=== PATIENT | female | born 1995 | race Caucasian/White ===

== ENCOUNTER 2024-01-16 10:48 | Outpatient (CLI) | payer MEDICAID, SELFPAY | END 2024-01-16 10:49 | disposition home or self-care (01) | LOC: NFLDREF 01-17 05:43 | PROVIDERS: Visit Provider Advanced Practice Midwife | DX: Z34.93 Encounter for supervision of normal pregnancy, unspecified, third trimester (principal) | CPT/HCPCS: 86803 ==

== ENCOUNTER 2024-01-27 12:13 | Outpatient (CLI) | payer MEDICAID, SELFPAY ==
--- NOTE | 2024-01-27 12:15 | US_ITS ---
Patient: DEVON CASTREJON Facility:?[facility] RIS Patient ID:?[id number] Site Patient ID:?[id number]. Site :?[id number] Study:?US-OB Pelvis OB F/U-01/27/2024 1:45:47 PM Ordering Physician:Jovita Alvarado Final Report: INDICATION: Third trimester scan, evaluate growth. COMPARISON: 01/08/2024 TECHNIQUE: Real time ordonez scale imaging of the fetus was performed. FINDINGS: Sonographic imaging demonstrates a single living intrauterine gestation. Cervix is closed and measures 3.2 cm. Fetus demonstrates a regular cardiac rate of 163 beats per minute. Fetus has a vertex position. The placenta lies anteriorly without evidence of placenta previa. Amniotic fluid volume appears normal and there is a single deepest vertical pocket: 4.9 cm. The estimated weight is 1575gm which lies at the 53rd %. On the prior OB ultrasound exam dated 01/08/2024 the estimated weight was at the 21st%. BPD 70th percentile. HC 56th percentile. AC is 31st percentile. FL 75th percentile. The HC/AC ratio measures 1.13 range (0.96-1.17). Central placental cord insertion. IMPRESSION: Sonographic gestational age 30 weeks 6 days and a sonographic due date of 03/31/2024. Sonographic age 6 days ahead of the clinical age. Estimated weight at 53rd percentile. Abdominal circumference 31st percentile. Dictated by Rudi George MD @ 01/29/2024 5:50:23 AM Signed by:?Rudi George MD @01/29/2024 5:50:23 AM (Electronic Signature)
== END 2024-01-27 12:14 | disposition home or self-care (01) ==
LOC: US 12:13
PROVIDERS: Visit Provider Advanced Practice Midwife
DX: O09.33 Supervision of pregnancy with insufficient antenatal care, third trimester (principal); Z3A.30 30 weeks gestation of pregnancy
CPT/HCPCS: 76816

== ENCOUNTER 2024-02-26 12:02 | Outpatient (CLI) | payer MEDICAID, SELFPAY ==
--- NOTE | 2024-02-26 12:15 | US_ITS ---
Patient: DEVON CASTREJON Facility:?[facility] Patient ID:?[id number] Site Patient ID:?[id number]. Site :?1997 Study:?US-OB Pelvis OB F/U-02/26/2024 12:53:32 PM Ordering Physician:Laurel Grace Final Report: INDICATION: Growth, circumvallate placenta. TECHNIQUE: Ultrasound OB pelvis transabdominal. Real-time ordonez-scale imaging of the fetus was performed without stress testing. COMPARISON: 01/27/2024 FINDINGS: Sonographic imaging demonstrates a single living intrauterine gestation. Fetus demonstrates a regular cardiac rate of 139 beats per minute. Fetus has a cephalic orientation. Limited evaluation of the placenta demonstrates anterior positioning. Placental cord insertion appears central. Previously described circumvallate placenta is less conspicuous on today`s examination. Biometric measurements: Biparietal diameter: 8.81 cm (35 weeks 4 days, 83rd percentile). Head circumference: 32.14 cm (36 weeks 2 days, 66th percentile). Abdominal circumference: 30.04 cm (34 weeks 0 days, 46th percentile). Femur length: 6.77 cm (34 weeks 6 days, 55th percentile). Estimated weight: 2463 grams, 53rd percentile. Estimated ultrasound age by today`s measurements is 35 weeks 1 day. Amniotic fluid volume appears normal with single deepest pocket of 4.2 cm. IMPRESSION: Single viable intrauterine with estimated weight of 2463 grams, which is the 53rd percentile. Dictated by Sharee Kelly MD @ 02/27/2024 10:45:03 AM Signed by:?Sharee Kelly MD @02/27/2024 10:45:03 AM (Electronic Signature)
== END 2024-02-26 12:03 | disposition home or self-care (01) ==
LOC: US 12:02
PROVIDERS: Visit Provider Advanced Practice Midwife
DX: O43.113 Circumvallate placenta, third trimester (principal); Z3A.35 35 weeks gestation of pregnancy
CPT/HCPCS: 76816

== ENCOUNTER 2024-03-11 10:57 | Outpatient (CLI) | payer MEDICAID, SELFPAY ==
[2024-03-12 12:13] LABS: Strep B DNA Probe Negative (Negative)
[2024-03-12 12:21] LABS: Strep B Susceptibility Needed? No
== END 2024-03-11 10:58 | disposition home or self-care (01) ==
LOC: NFLDREF 10:57
PROVIDERS: Visit Provider Advanced Practice Midwife
DX: Z34.83 Encounter for supervision of other normal pregnancy, third trimester (principal)
CPT/HCPCS: 87081; 87653

== ENCOUNTER 2024-04-14 07:19 | Inpatient (IN) | payer MEDICAID, SELFPAY ==
[2024-04-14] VITALS (21 sets, daily range): BP systolic 104–125; BP diastolic 59–73; PULSE 66–92; RESP 16; TEMP 36.4–37; O2SAT 94–97; BMI 32.0
--- NOTE | 2024-04-14 08:30 | W.PM.LDBA ---
Subjective History of Present Illness Date Seen: 04/14/24 Narrative: Maira is a 28 yo at 41 1/7 weeks gestation being admitted to Labor and Delivery for induction of labor for post-dates. She reports she has had occasional contractions but nothing ever progressed. She feels baby moving. She denies any leaking of fluid or bleeding. She is supported in labor by her Partner, Emili. Her full history and physical was dictated by CÉSAR Amato on 03/17/2024. Please see this for details. Specific Issues/Plans Long time partner: Emili Hep C neg, GTT 75 H&P 03/17/24 by Renny Bob CNM. Varicella not drawn please add to orders on admission #Late PNC. Unaware of until 24 weeks gestation r/t and PP thyroiditis. # Hx PP thyroiditis. Being follow by endocrinology. Stopped levo 12/24/23. TSH 1.08. Started levo 50mcg per endo #Circumvallate placenta. Repeat growth at 30wks (also for late US dating) and 34 wks per transfer MFM recommendations. 30wk US- EFW 53.1%, dating consistent with current JUAN F. 34 wk US- EFW 53.0%, SDP 4.2 # Close spaced . Last delivery 11/08/22. OB Labs (01/08/2024): Blood type: O+, antibody screen negative. Hgb: 12.9 Platelets: 318 Rubella: Immune Varicella: not in records RPR: non-reactive HBsAg: non-reactive Hep C: negative HIV: negative result viewed on patients phone via her portal UC: Contaminants present, no follow-up needed GC/Chlamydia: Pap (03/27/2021): negative IMAGING: Anatomy scan: 12/30/2023. Uncertain Dating. US at 26.2 weeks gestation. Unremarkable anatomy with limited views of limbs, profile, genitalia. MFM referral/follow-up recommended. Needs pap PP. Declined Tdap OB - Problem Based A/P Additional Plan (1) Encounter for induction of labor: Status: Acute (2) Post term , 41 weeks: Status: Acute (3) Circumvallate placenta: Status: Acute (4) Late care: Problem details: Began care at 26 weeks. Status: Acute (5) History of thyroiditis: Problem details: ; Following with endocrine. Levothyroxine 50mcg started at 29 wks by endocrine Status: Acute Plan ASSESSMENT:? 28 yo at 41.1 weeks gestation? Post-term complicated by:? # Late PNC. Unaware of until 24 weeks gestation r/t and PP thyroiditis. # Hx PP thyroiditis. # Circumvallate placenta. # Close spaced . Last delivery 11/08/22. Labor type: Induced, not in labor? Category 1 FHR pattern.?? Labor complicated by: post-dates? GBS negative? ? PLAN:? 1. Routine intrapartum cares as ordered. Continue with expectant management? 2. Monitoring per policy, intermittent? 3. Planning unmedicated . Desires water . Consent signed. Hep C negative. Candidate for analgesia of choice if desired.?? 4. Patient encouraged to reposition and ambulate to promote physiologic labor and .? 5. Anticipate ? Delivery/Labor/Induction Plan Plan: induction Induction method: AROM OB Exam Physical Exam Vital signs: Pulse BP Pulse Ox 72 109/62 94 04/14/24 07:31 04/14/24 07:31 04/14/24 07:31 Narrative: Vitals Reviewed Constitutional:? Alert and oriented x3 HEENT:? Normocephalic, atraumatic Neck:? Supple Lungs:? Clear to auscultation bilaterally Heart:? Regular rate and rhythm, no murmur, rub or gallop Abdomen:? Soft, nontender, and gravid. Vertex by Todd's, confirmed with cervical exam. Extremities:? No edema or erythema Cervix: 4-5 cm/70%/-1 station/vertex; AROM for clear fluid NST: 135 bpm/moderate variability/15x15 accelerations/no decelerations/occasional contractions on toco, pt denies feeling them Detailed Labor and Delivery Exam Patient Gravid: Yes
[2024-04-14] MEDS: LACTATED RINGERS 1000 ML 1,000 ML 125 ML IV (14:44)
[2024-04-14] MEDS: OXYTOCIN 30 unit/500 ML in NS 30 UNIT/500 ML BAG IVPB (14:45)
--- NOTE | 2024-04-14 17:44 | PM.OBPNL ---
Subjective Date Seen: 04/14/24 Narrative: Maira is a 28 yo at 41 1/7 weeks gestation here today for induction of labor for post-dates. She is supported in labor by her partner, Segun. Her IOL was started with AROM this morning after 8 am. She noted some mild but irregular contractions throughout the day. She did multiple position changes to encourage labor. We discussed starting Pitocin but had elected to continue position changes. She denies any bleeding but continues to leak clear fluid. This afternoon, light mec stained fluid was noted on her pad. Pitocin was started around 230 pm. She is currently on 3 units of pitocin and is starting to feel more painful, regular contractions. She is coping well and was offered options for pain management and has elected to try the tub. Objective Exam: Objective: Constitutional: Alert and oriented x3, moderate distress, coping well Vital signs stable, see nurse documentation Abdomen: gravid, contractions palpate moderate with contractions and soft between Cervix: 7 cm/70%/0 station/vertex NST: 155 bpm/moderate variability/15x15 accelerations/early decelerations/contractions every 2-3 minutes Vital Signs: Last Vital Signs Temp 98.4 F 04/14/24 15:52 Pulse 67 04/14/24 16:53 BP 105/61 04/14/24 16:53 Pulse Ox 94 04/14/24 07:31 Plan Plan: ASSESSMENT:? 28 yo at 41.1 weeks gestation? Post-term complicated by:? # Late PNC. Unaware of until 24 weeks gestation r/t and PP thyroiditis. # Hx PP thyroiditis. # Circumvallate placenta. # Close spaced . Last delivery 11/08/22. Labor type: Induced, active labor Category 1 FHR pattern.?? Labor complicated by: post-dates? GBS negative? ? PLAN:? 1. Routine intrapartum cares as ordered. Discussed starting pitocin if contractions do not increase in frequency or intensity by 3 pm. Patient was agreeable to plan and pitocin was started. Will continue to titrate per patient contraction pattern. 2. Monitoring per policy, continuous with pitocin? 3. Planning unmedicated . Desires water . Consent signed. Hep C negative. Candidate for analgesia of choice if desired.?? 4. Patient encouraged to reposition and ambulate to promote physiologic labor and .? 5. Light mec stained fluid. 6. Anticipate ?
--- NOTE | 2024-04-14 19:12 | W.PM.VAGDE_ITS ---
OB Procedure Vag Delivery Mother Details Mother Details: The patient is a 28 year-old, 2, Para 1, admitted on 04/14/24 at 41.1 weeks gestation. : 2 Para: 2 Weeks Gestation: 41.1 Admission Date: 04/14/24 Additional Details Amniotic Membrane Status: AROM Amniotic Membrane Rupture Date: 04/14/24 Amniotic Membrane Rupture Time: 08:11 Amniotic Membrane Fluid Description: Yellow (Light meconium) Analgesia/Anesthesia Type: None Waterbirth: Yes Pitcoin: Yes (Augmentation and AMTSL) Intrapartal Events: Labor Induction and Precipitous Labor <3 Hrs Induction Method: AROM Delivery augmentation: pitocin Labor Onset: 16:45 Complete: 18:30 Pushin:30 Heart: heart tones during second stage were difficult to continuously trace due to maternal position but reassuring when monitored, delivery was imminent. Delivery Details Delivery Date: 04/14/24 Delivery Time: 18:36 Route of delivery: Gender: Female Infant Viability: Alive; Heart Rate Present Position at Delivery: OA Delivery Details: Patient was admitted for induction of labor. Her induction was started with AROM of clear fluid at 0811. After 6 hours with minimal increase in contraction frequency or intensity, pitocin was started for augmentation. She quickly became uncomfortable and requested nitrous for pain. She transitioned to the tub and shortly after began feeling urge to push and intense pressure. Patient was assumed complete with pushing at 1830. of a viable female at 1836 in semi- reclined position in the tub. Vertex delivered OA. Nuchal cord identified, loose and easily reduced. Shoulder was palpated but slow delivery of body due to poor maternal pushing and maternal position in the tub. Legs were assisted up and then patient was guided to push and then body delivered easily and without incident. passed to mothers abdomen with a vigorous cry. Cord was clamped and cut at > 5 minutes. APGARS were 8 at one minute and 9 at five minutes respectively. Mouth was bulb suctioned. Intact placenta with a 3 vessel cord delivered spontaneously at 1850 with significant bleeding that resolved once delivered. Fundus firm. Small perineal abrasion identified and no repair indicated. QBL 150 +EBL 400, total 550 cc. Mother and baby stable; mother plans to breastfeed. Infant weight 8lb 5oz. 1 Minute Interval Total Score: 8 5 Minute Interval Total Score: 9 Additional Details Shoulder Dystocia: No Placenta Delivery Time: 18:50 Placental Delivery Description: Spontaneous Procedure Done: Global Blood Loss: 550 Laceration: None (small perineal abrasion, no repair) Blood Loss Measurement Type: QBL (EBL in tub) Bakri Used: No Sponge/Need Count Correct: Yes Cord Vessel Description: 3 Vessels, Nuchal Cord, Loose and Reduced Event Summary Status: Mother and were stable after delivery. Disposition: floor
[2024-04-15 03:57] VITALS: BP 108/75; PULSE 70; RESP 16; TEMP 36.5; O2SAT 94
[2024-04-15 07:01] LABS: Hemoglobin* 11.6 gm/dL (12.0-16.0)
--- NOTE | 2024-04-15 08:05 | PM.OBDSVD1 ---
DS: Providers Provider Date Seen: 04/15/24 Date of admission: 04/14/24 07:19 Primary care physician: Not a Local Provider Admitting Clinician: Lucretia Bowser CNM Attending Physician on discharge: Zachary Linares CNM Date of Discharge: 04/15/24 DS: Diagnosis Discharge Diagnosis (1) care and examination immediately after delivery: Status: Acute (2) Lactating mother: Status: Acute Exam Narrative: Exam Narrative: VSS, afebrile GENERAL APPEARANCE: ?normal affect, alert, no distress MOOD: ?appropriate HEENT: normocephalic, neck supple, full ROM CHEST: ?Symmetrical chest wall movement. ?Normal respiratory effort. ?Clear to auscultation HEART: ?regular rate and rhythm ABDOMEN: ?soft, non-tender. Uterine fundus is firm, at Umbilicus, Midline and is appropriate for the stage of recovery. ?Bowel sounds present. EXTREMITIES: ?normal and no edema Const: Vital Signs, click to edit/add: Vital Signs - 24 hr 04/14/24 09:08 04/14/24 10:15 04/14/24 11:12 Temperature 97.6 F 98.3 F 98.3 F Pulse Rate Pulse Rate [Pulse Oximeter] Respiratory Rate Blood Pressure Blood Pressure [Le ft Arm] Pulse Oximetry Oxygen Delivery [facility] 04/14/24 11:48 04/14/24 12:20 04/14/24 13:16 Temperature 97.9 F 97.6 F Pulse Rate 67 Pulse Rate [Pulse Oximeter] Respiratory Rate Blood Pressure 117/59 L Blood Pressure [Le ft Arm] Pulse Oximetry Oxygen Delivery [facility] 04/14/24 14:47 04/14/24 14:48 04/14/24 15:52 Temperature 97.9 F Pulse Rate 71 66 Pulse Rate [Pulse Oximeter] Respiratory Rate Blood Pressure 106/63 125/67 Blood Pressure [Le ft Arm] Pulse Oximetry Oxygen Delivery [facility] 04/14/24 15:52 04/14/24 16:53 04/14/24 16:53 Temperature 98.4 F 97.6 F Pulse Rate 67 Pulse Rate [Pulse Oximeter] Respiratory Rate Blood Pressure 105/61 Blood Pressure [Le ft Arm] Pulse Oximetry Oxygen Delivery [facility] 04/14/24 17:38 04/14/24 18:54 04/14/24 19:13 Temperature 97.9 F Pulse Rate 81 84 Pulse Rate [Pulse Oximeter] Respiratory Rate Blood Pressure 123/60 119/66 Blood Pressure [Le ft Arm] Pulse Oximetry Oxygen Delivery [facility] 04/14/24 19:23 04/14/24 19:39 04/14/24 19:53 Temperature Pulse Rate 89 85 82 Pulse Rate [Pulse Oximeter] Respiratory Rate Blood Pressure 120/70 124/73 114/60 Blood Pressure [Le ft Arm] Pulse Oximetry Oxygen Delivery [facility] 04/14/24 20:08 04/14/24 20:23 04/14/24 20:38 Temperature Pulse Rate 76 83 92 Pulse Rate [Pulse Oximeter] Respiratory Rate Blood Pressure 123/69 121/66 116/61 Blood Pressure [Le ft Arm] Pulse Oximetry Oxygen Delivery [facility] 04/14/24 23:07 04/15/24 03:57 Temperature 98.6 F 97.7 F Pulse Rate Pulse Rate [Pulse Oximeter] 92 70 Respiratory Rate 16 16 Blood Pressure Blood Pressure [Le ft Arm] 104/71 108/75 Pulse Oximetry 97 94 Oxygen Delivery [facility] Room Air Room Air Documenting provider has reviewed patient's vital signs: yes OB - DS: Summary Hospital Course Hospital Course: Maira is a 28 y.o. who was admitted to L & D for induction of labor. ?She had an uncomplicated NVD.?The patient feels well. ?The pain is well controlled with current medications. ?She has no new complaints. ?She is breast feeding and reports things are going well.? the patient has done well.? Vitals have been stable.? She has remained afebrile.? Has a good appetite, is tolerating a general diet. ?She is voiding without difficulty.? She is passing gas and has not had a bowel movement.? She is ambulating and denies any dizziness.? Has Small amount of rubra lochia. ?She is planning Paragard IUD for prevention. Peripartum Data Infant delivery method: Vaginal Laceration description: None complications: none [place] Infant Gender: Female Discharge Plan: Home Status at Discharge Functional status at discharge: independent ambulation Overall status at discharge: patient is progressing back to baseline Time Spent with Patient Time attestation: Total time spent providing and/or coordinating discharge services: Time spent: Less than 30 minutes Discharge Plan Discharge Disposition: Home, Self-Care Date of Admission: 04/14/24 07:19 Attending Provider on Discharge: Zachary Linares Primary Care Provider: Provider,Not a Local Condition: Stable Anticipated Discharge Date/Time: 04/15/24 20:00 Discharge Medications: New acetaminophen 500 mg Tablet 1,000 mg PO Q6H PRNQty: 0 0RF docusate sodium 100 mg Capsule 100 mg PO DAILY Qty: 90 2RF ibuprofen 600 mg Tablet 600 mg PO Q6H PRNQty: 60 0RF Continued levothyroxine 50 mcg capsule 50 mcg PO QDAY prenat vit-iron [id number] 95-1-50 mg capsule 1 cap PO DAILY Discharge Orders: Discharge Order (Routine); Ordered 04/15/24 Ordered By: Zachary Linares Patient Education: OB Over the Counter Medication Information, OB Vaginal/Breast Feeding Additional Instructions: Discharge instructions were reviewed with the patient including signs and symptoms of infection and home going medications Nothing vaginally for 6 weeks: no tampons or intercourse Off Work or School for 6 weeks 2-week visit: discuss infant feeding concerns, review control options and screen for anxiety/depression. 6-week visit for an annual exam. consultation services are available to all mothers and babies for the first year after delivery.? To make an appointment, please call [phone]. Activity Level: Activity as Tolerated Discharge Diet: Regular Follow Up Appointments: Provider,Not a Local [Primary Care Provider] - [facility] [Provider Group] Forms: [employer] Info Instructions
[2024-04-15 08:46] VITALS: BP 106/71; PULSE 74; RESP 16; TEMP 36.6; O2SAT 96
[2024-04-15 12:14] VITALS: BP 102/62; PULSE 68; RESP 16; O2SAT 96
[2024-04-15 17:11] VITALS: BP 110/73; PULSE 62; RESP 16; TEMP 36.6; O2SAT 95
[2024-04-15 21:42] VITALS: BP 102/67; PULSE 78; RESP 16; TEMP 36.7; O2SAT 95
[2024-04-16 04:24] VITALS: BP 120/81; PULSE 62; RESP 16; TEMP 36.6; O2SAT 95
--- NOTE | 2024-04-16 08:40 | PM.OBDSVD1 ---
DS: Providers Provider Date Seen: 04/16/24 Date of admission: 04/14/24 07:19 Primary care physician: Not a Local Provider Admitting Clinician: Lucretia Bowser CNM Attending Physician on discharge: Lucretia Bowser CNM Date of Discharge: 04/16/24 DS: Diagnosis Discharge Diagnosis (1) Lactating mother: Status: Acute (2) care following vaginal delivery: Status: Acute Exam Narrative: Exam Narrative: GENERAL APPEARANCE:? normal affect, alert, no distress? MOOD:? appropriate? CHEST:? clear to auscultation and percussion? HEART:? regular rate and rhythm? ABDOMEN:? soft, non-tender the uterine fundus is U/2 and is appropriate for the stage of recovery.? PERINEUM:? mild edema of the perineum, there is an intact perineum that is healing well.? EXTREMITIES:? normal and no edema? Const: Vital Signs, click to edit/add: Vital Signs - 24 hr 04/15/24 08:46 04/15/24 12:14 04/15/24 17:11 Temperature 97.9 F 98 F Pulse Rate [Pulse Oximeter] 74 68 62 Respiratory Rate 16 16 16 Blood Pressure [Le ft Arm] 106/71 102/62 110/73 Pulse Oximetry 96 96 95 Oxygen Delivery [facility] Room Air Room Air Room Air 04/15/24 21:42 04/16/24 04:24 Temperature 98.1 F 97.9 F Pulse Rate [Pulse Oximeter] 78 62 Respiratory Rate 16 16 Blood Pressure [Le ft Arm] 102/67 120/81 Pulse Oximetry 95 95 Oxygen Delivery [facility] Room Air Room Air Documenting provider has reviewed patient's vital signs: yes OB - DS: Summary Hospital Course Hospital Course: Maira is a 28 year old G 2 P 2 at 41.1 weeks gestation that was admitted to the Center on 04/14/24 for postdates IOL. She had an uncomplicated vaginal delivery. She delivered a viable female infant. She is breast feeding and denies concerns with how it is going at this time. the patient has done well. Her pain is well controlled with current medications.? She has no new complaints.? Urinary output is adequate and she is voiding without difficulty.? Has a good appetite, is tolerating a general diet, is passing flatus, and has had a bowel movement.? Has scant amount of rubra lochia.? She is ambulating well.?She is considering an IUD for contraception. Peripartum Data Infant delivery method: Vaginal Laceration description: None Episiotomy description: None complications: none [place] Infant Gender: Female Discharge Plan: Home Status at Discharge Functional status at discharge: independent ambulation Overall status at discharge: patient is progressing back to baseline Time Spent with Patient Time attestation: Total time spent providing and/or coordinating discharge services: Discharge Plan Discharge Disposition: Home, Self-Care Date of Admission: 04/14/24 07:19 Attending Provider on Discharge: Zachary Linares Primary Care Provider: Provider,Not a Local Condition: Stable Anticipated Discharge Date/Time: 04/15/24 20:00 Discharge Medications: New acetaminophen 500 mg Tablet 1,000 mg PO Q6H PRNQty: 0 0RF docusate sodium 100 mg Capsule 100 mg PO DAILY Qty: 90 2RF ibuprofen 600 mg Tablet 600 mg PO Q6H PRNQty: 60 0RF Continued levothyroxine 50 mcg capsule 50 mcg PO QDAY prenat vit-iron [id number] 95-1-50 mg capsule 1 cap PO DAILY Discharge Orders: Discharge Order (Routine); Ordered 04/16/24 Ordered By: Jovita Bob Patient Education: OB Over the Counter Medication Information, OB Vaginal/Breast Feeding Additional Instructions: Discharge instructions were reviewed with the patient including signs and symptoms of infection and home going medications Nothing vaginally for 6 weeks: no tampons or intercourse Off Work or School for 6 weeks Symptoms to report to doctor:? -Bleeding that saturates more than one pad per hour? -Passing clots larger than the size of a golf ball? -Pain not relieved by prescribed medication? -Fever above 100.4 degrees Fahrenheit? -A foul vaginal odor? -Difficulty in emotions, mood and functions? -Thoughts of hurting yourself and/or ? -Painful, reddened area in your breast? -Any drainage, redness or tenderness in your IV/epidural site? -Severe headache that doesn't improve after taking medications? -Changes in vision, including temporary loss of vision, blurred vision, and/or light sensitivity? -Upper abdominal pain (usually under ribs on the right side)? -Decrease in urination or painful, frequent urinating? -Chest pain? -Shortness of breath? -Tenderness or pain with redness and/swelling in the calf(s) of your leg? 2-week visit: discuss infant feeding concerns, review control options and screen for anxiety/depression. 6-week visit for an annual exam. consultation services are available to all mothers and babies for the first year after delivery.? To make an appointment, please call [phone]. Activity Level: Activity as Tolerated Discharge Diet: Regular Follow Up Appointments: [facility] [Provider Group] Provider,Not a Local [Primary Care Provider] - Forms: [employer] Info Instructions
[2024-04-16 09:04] VITALS: BP 107/71; PULSE 78; RESP 16; TEMP 36.6; O2SAT 95
[2024-04-18 02:43] LABS: Varicella-Zoster Virus Ab, IgG 531.1 IV
== END 2024-04-16 15:15 | disposition home or self-care (01) | DRG 807 ==
PROVIDERS: Admitting Provider Advanced Practice Midwife; Visit Provider Advanced Practice Midwife
DX: O48.0 Post-term pregnancy (principal); Z37.0 Single live birth; Z3A.41 41 weeks gestation of pregnancy; O43.113 Circumvallate placenta, third trimester; Z86.39 Personal history of other endocrine, nutritional and metabolic disease; O77.0 Labor and delivery complicated by meconium in amniotic fluid
CPT/HCPCS: 36415; 85018; 86592; 86787; J7120

== ENCOUNTER 2024-06-03 11:01 | Outpatient (CLI) | payer MEDICAID, SELFPAY ==
--- NOTE | 2024-06-03 13:10 | W.PM.LAC.MC ---
Consult Note - Mom Date of Visit Date of visit: 06/03/24 instructional systems design consultant: Brittani Rowe Visit Code: Visit Patient's Information Phone number: [phone] : 2 Para: 2 Allergies No Known Drug Allergies Allergy (Verified 04/29/24 11:27) Mother's Medical History: Medical History (Updated 05/26/24 @ 08:14 by Viktoriya Pugh CNM) Late care ?O09.30 - Supervision of with insufficient care, unspecified trimester (ICD-10) thyroiditis ?O90.5 - thyroiditis (ICD-10) Delivery Information Delivery type: Vaginal Weeks Gestation: 41+1 Gestational Age: AGA Weight: 3.77 kg Discharge Weight: 3.578 kg Baby's Information Baby's Age at Visit: 1m 19d Baby's Provider or Clinic: [facility] Jaundice: No Reason for Consult Reason for Consult: Mom hears baby clicking while nursing, about 50% of the time. Wondering if this is ok or if she should be concerned Baby's stools are also green and bubbly sometimes, not sure if this is related. Mom had baby in clinic last week when she noticed some blood in the stool, stool was soft Mom has cut dairy from her diet and notices less blood (none for a few days now) She wants to be sure the clicking isn't causing gastric upset. Past Experience Past Experience: Yes Current Frequency of Day Feedings: every 2-3 hours Frequency of Night Feedings: 5-6 hour stretch Both Breasts: Yes (sometimes) Suck: strong Latch: moderately wide and deep per mom Length of Time: 20 minutes Pumping Pumping: No Supplementing EMB Supplement: No Formula Supplement: No Baby Elimination Number of Wet Diapers a Day: 6+ a day Number of BM a Day: she is always pooping Breast/Nipple Condition Engorgement: No Maternal Nipple Condition - Left: Common Nipple Maternal Nipple Condition - Right: Common Nipple Sore Nipples: No Onsite Pre-Feed weight: 4.928 kg Post-Feed weight: 5.01 kg Milk Transferred (mL): 82 Pre-Nursing Left Nipple: Within Normal Limits Pre-Nursing Right Nipple: Within Normal Limits Post-Nursing Right Nipple: Within Normal Limits (nipple is rounded upon baby unlatching) Assessments/Interventions Assessments/Interventions: observation: Babe latches easily to mom's right breast; quiet initially; within 30 seconds, baby is gulping at breast and the clicking begins. Worked with mom to get baby latched wider, deeper using breast sandwich and asymmetric latch. No clicking heard. Baby tolerates this for a few minutes and then pulls off. When relatches, babe is again shallow and clicking. Suck assessment - baby flips tongue against gloved finger some. With gentle tug of war and gentle pressure on back of tongue during pulsing, baby able to diamond wheel edger finger with more rhythmic suck. Mom relatches babe with no clicking. Discussed with mom it appears the clicking is babe learning to manage mom's strong letdown and slight discoordinated suck. Recommend suck training (tug of war kind of exercise) 2-3 times a day for a 1-2 minutes before nursing, Discussed role of wide, deep latch to decrease clicking; allowing breast to help keep tongue in appropriate placement in mouth but babe also using tongue to help manage mom's strong letdown. If babe can't keep deep latch initially, work to relatch baby after3-5 minutes of nursing, keep in straight alignment, and snugged into breast. If mom uses nipple shield, important to still get wide, deep latch to stay consistent. Babe may click less as shield help hold tongue down and is also a barrier of strong let down. Recommend mom have baby seen again in primary care given green stools with flecks of blood; possible milk soy protein intolerance since mom notices less as she has given up dairy for the last 5 days. Mom already has this appointment this afternoon. time spent reviewing records and face to face time with mom and baby: 45 minutes Meds Home Medications and Allergies Home Medications ?Medication ?Instructions ?Recorded ?Confirmed ?Type vitamn-iron carb-folic 1 cap PO DAILY 01/12/24 04/29/24 History acid-docusate 95 mg-1 mg-50 mg capsule levothyroxine 50 mcg capsule 50 mcg PO QDAY 01/27/24 04/29/24 History Allergies Allergy/AdvReac Type Severity Reaction Status Date / Time No Known Drug Allergies Allergy Verified 04/29/24 11:27
== END 2024-06-03 11:02 | disposition home or self-care (01) ==
PROVIDERS: Visit Provider Obstetrics & Gynecology
DX: Z39.1 Encounter for care and examination of lactating mother (principal)
CPT/HCPCS: G0463

== ENCOUNTER 2024-08-11 10:14 | Outpatient (CLI) | payer MEDICAID, SELFPAY ==
[2024-08-12 22:56] LABS: HPV Source Cervical; HPV, High Risk by TMA Not Detected
== END 2024-08-11 10:15 | disposition home or self-care (01) ==
PROVIDERS: Visit Provider Advanced Practice Midwife
DX: Z12.4 Encounter for screening for malignant neoplasm of cervix (principal)
CPT/HCPCS: 87624; 87625; 88141; 88142

== ENCOUNTER 2025-02-02 11:24 | Outpatient (CLI) | payer MEDICAID, SELFPAY | END 2025-02-02 11:25 | disposition home or self-care (01) | LOC: NFLDREF 02-05 19:09 | PROVIDERS: PCP Emergency Medicine; Visit Provider Emergency Medicine | DX: Z13.6 Encounter for screening for cardiovascular disorders (principal); Z13.1 Encounter for screening for diabetes mellitus | CPT/HCPCS: 80061; 82947 ==